=== PATIENT | female | born 1955 ===

== ENCOUNTER 2019-04-16 10:16 | Observation (INO) ==
[2019-04-16] MEDS ORDERED: INFLUENZA VIRUS VACCINE 0.5 ML SYRINGE IM ONE (13:15)
[2019-04-16] MEDS ORDERED: PNEUMOCOCCAL VACCINE (13 VALENT) 0.5 ML SYRINGE IM ONE (13:15)
[2019-04-16] MEDS ORDERED: ACETAMINOPHEN 325 MG TABLET PO PRN (13:41)
[2019-04-16] MEDS ORDERED: ENOXAPARIN 30 MG/0.3 ML SYRINGE SUBCUT SCH (14:00)
[2019-04-16] MEDS ORDERED: hydrALAZINE 20 MG/1 ML VIAL IV PRN (15:28)
[2019-04-16] MEDS: carvediloL 6.25 MG TABLET PO SCH (20:27)
[2019-04-16] MEDS ORDERED: hydroCHLOROthiazide 25 MG TABLET PO SCH (21:00)
[2019-04-16] MEDS ORDERED: MORPHINE 4 MG/1 ML VIAL IV PRN (21:31)
[2019-04-16] MEDS: ONDANSETRON 4 MG/2 ML VIAL IV PRN (22:00)
[2019-04-17 05:10] LABS: Basophils % 0.5 % (0.0-0.8); Eosinophils # 0.1 10*3/uL (0.0-0.87); Eosinophils % 1.2 % (0.00-10.9); Hematocrit 42.2 VOL% (35.7-47.0); Hemoglobin 13.9 GM/DL (12.0-16.0); Immature Granulocytes % 0.3 %; Immature Granulocytes Absolute 0.02 #; Lymphocytes # 2.1 10*3/uL (1.4-4.0); Lymphocytes % 32.2 % (21.3-54.2); Mean Corpuscular HGB Conc 32.9 GM/DL (32-36); Mean Corpuscular Volume 93.6 FL (87-102); Mean Platelet Volume 10.3 FL (9.6-12.0); Monocytes % 9.6 % (1.7-12.7); Neutrophils % 56.2 % (38.7-73.9); Platelet Count 234 T/CUMM (130-400); Red Blood Count 4.51 MC/CUMM (3.8-5.5); Red Cell Distribution Width 12.2 % (9.3-17.3); White Blood Count 6.6 T/CUMM (4-12)
[2019-04-17 05:17] LABS: Calcium 8.5 MG/DL (8.5-10.1); Osmolality,Calculated 287.1 MOS/KG (273-304)
[2019-04-17 05:20] LABS: Risk Ratio 3.4; VLDL CHOLESTEROL 19.6 MG/DL
[2019-04-17] MEDS ORDERED: traMADol 50 MG TABLET PO PRN (08:05)
[2019-04-17 08:51] LABS: Troponin I < 0.015 NG/ML (0.00-0.045)
[2019-04-17] MEDS ORDERED: CYANOCOBALAMIN 500 MCG TABLET PO SCH (09:00)
[2019-04-17] MEDS ORDERED: amLODIPine 10 MG TABLET PO SCH (09:00)
[2019-04-17] MEDS ORDERED: LOSARTAN 50 MG TABLET PO SCH (09:00)
[2019-04-17] MEDS ORDERED: ASPIRIN CHEW 81 MG TABLET PO SCH (09:00)
[2019-04-17] MEDS ORDERED: hydroCHLOROthiazide 12.5 MG CAPSULE PO SCH (09:00)
[2019-04-17] MEDS ORDERED: PANTOPRAZOLE 40 MG TABLET PO SCH (09:00)
[2019-04-17] MEDS: carvediloL 6.25 MG TABLET PO SCH (10:05)
[2019-04-17 11:23] VITALS: BP 132/63
[2019-04-17] MEDS: ONDANSETRON 4 MG/2 ML VIAL IV PRN (12:02)
== END 2019-04-17 14:25 | disposition home or self-care (01) ==
LOC: N.2W → SUATTDRO 12:35 → N.2W 12:45
PROVIDERS: ADMIT Internal Medicine; ATTEND Emergency Medicine